=== PATIENT | male | born 1940 ===

== ENCOUNTER → 2018-06-25 19:35 | Outpatient (REF) | payer OTHER, SELFPAY | LOC: LAB 19:35 | PROVIDERS: Visit Provider Oral & Maxillofacial Surgery | DX: J34.1 Cyst and mucocele of nose and nasal sinus (principal); J32.1 Chronic frontal sinusitis; J32.2 Chronic ethmoidal sinusitis | CPT/HCPCS: 87070; 87075; 87102; 87107; 87205 ==